=== PATIENT | male | born 1985 | race Caucasian/White ===

== ENCOUNTER 2019-10-25 14:33 | Emergency (ER) | payer OTHER ==
[~2019-10-25] VITALS: Ht 165.1 cm; Wt 77.1 kg
[2019-10-25] MEDS ORDERED: NEURONTIN100 MG PO (14:59)
[2019-10-25] MEDS ORDERED: AMITRIPTYLINE H50 M2 PO (15:00)
[2019-10-25 15:19] LABS: INFLUENZA A ANTIGEN Positive (Negative); INFLUENZA B ANTIGEN Negative (Negative)
[2019-10-25] MEDS ORDERED: TYLENOL WITH CO1 TA1 PO (15:33)
[2019-10-25] MEDS ORDERED: TAMIFLU75 MG PO (15:33)
[2019-10-25] MEDS ORDERED: PROAIR HFA8.5 GM INH (15:33)
[2019-10-25] MEDS ORDERED: ONDANSETRON HCL4 M3 PO (15:33)
[2019-10-25] MEDS ORDERED: TESSALON PERLE100 MG PO (15:33)
[2019-10-25 15:44] VITALS: BP 135/91
== END 2019-10-25 15:52 | disposition home or self-care (01) ==
LOC: M.ERS 14:33
PROVIDERS: Emergency Medicine Emergency Medical Services
DX: J10.1 Influenza due to other identified influenza virus with other respiratory manifestations (principal); J45.909 Unspecified asthma, uncomplicated; F17.210 Nicotine dependence, cigarettes, uncomplicated; Z88.1 Allergy status to other antibiotic agents

== ENCOUNTER 2020-12-07 02:46 | Emergency (ER) | payer OTHER ==
[~2020-12-07] VITALS: Ht 165.1 cm; Wt 72.6 kg
[~2020-12-07 02:46] MED LIST: AMITRIPTYLINE H50 M2 PO; NEURONTIN100 MG PO; ONDANSETRON HCL4 M3 PO; PROAIR HFA8.5 GM INH; TAMIFLU75 MG PO; TESSALON PERLE100 MG PO; TYLENOL WITH CO1 TA1 PO
[2020-12-07] MEDS ORDERED: NEURONTIN 300M300 M2 PO (03:03)
[2020-12-07] MEDS ORDERED: AMITRIPTYLINE H25 M4 PO (03:03)
[2020-12-07 04:47] VITALS: BP 121/76
== END 2020-12-07 04:47 | disposition home or self-care (01) ==
LOC: M.ERS 02:46
DX: R51.9 Headache, unspecified (principal); J45.909 Unspecified asthma, uncomplicated; F17.210 Nicotine dependence, cigarettes, uncomplicated; Z88.1 Allergy status to other antibiotic agents